=== PATIENT | female | born 1950 | race Two or more races ===

== ENCOUNTER 2024-03-29 09:23 | Emergency (ER) | payer OTHER, MEDICAID, SELFPAY ==
[2024-03-29 09:46] VITALS: BP 107/52; PULSE 90; RESP 16; TEMP 37.3; O2SAT 98; BMI 28.0
--- NOTE | 2024-03-29 10:03 | XR_ITS ---
Examination: Hand, left 3 views Technique: Hand AP, oblique, lateral 3 views Date and time of exam: March 29, 2024 1010 hrs. Indications: Onset pain and swelling involving the third digit this week Findings: Severe osteopenia No fracture No cortical bone destruction No opaque foreign body Impression: No opaque foreign body or cortical bone destruction
--- NOTE | 2024-03-29 10:04 | EDNOTE_ITS ---
Upper Extremity Injury RME/HPI General Chief Complaint: Hand/Wrist Problems Stated Complaint: left 3rd digit swelling pain Time Seen by Provider: 03/29/24 09:33 Source: patient and family Arrival date/time: 03/29/24 09:23 Limitations: language barrier RME / HPI RME / HPI narrative: 73-year-old female presents for evaluation of swelling and redness to the third digit of her left hand x 2 days. She reports spontaneous onset while she was washing the dishes several days ago. She reports putting a topical ointment ('from [place] ) on the wound with minimal improvement of symptoms. Patient reports similar lesion to the index finger of her right hand which improved after several days of applying the ointment. Patient reports that she regularly works in the yard and handles various cleaning chemicals at home. Patient denies fever, chills, spreading rash, chest pain, numbness, tingling. MD complaint: injury to: left Handedness: right Related Data Home Medications ?Medication ?Instructions ?Recorded ?Confirmed Aspirin Ec * (ECOTRIN *) 81 mg PO QDAY ##0 08/11/14 Benazepril Hcl * (LOTENSIN *) 10 mg PO QDAY #0 tabs 08/11/14 docusate sodium 100 mg capsule 100 mg PO BID #0 caps 08/11/14 (Colace) glipizide 10 mg tablet 10 mg PO ACBR #0 tabs 08/11/14 metformin 1,000 mg tablet 1,000 mg PO QDAC #0 tabs 08/11/14 (Glucophage) omeprazole 40 mg capsule,delayed 40 mg PO QDAY ##0 08/11/14 release (Prilosec) saxagliptin 5 mg tablet (Onglyza) 5 mg PO QDAY #0 tabs 08/11/14 Aspirin Ec * (ECOTRIN *) 81 mg PO QDAY Heart ##0 07/09/15 glipizide 10 mg tablet 10 mg PO BID Diabetes #0 tabs 07/09/15 insulin lispro 100 unit/mL 15 unit subcut BID Diabetes #0 07/09/15 subcutaneous solution (Humalog vials U-100 Insulin) linagliptin 5 mg tablet (Tradjenta) 5 mg PO QDAY Diabetes ##0 07/09/15 metformin 1,000 mg tablet 1,000 mg PO BID Diabetes #0 tabs 07/09/15 (Glucophage) Previous Rx's ?Medication ?Instructions ?Recorded Phenazopyridine * (PYRIDIUM *) 200 mg PO TIDPC #14 tabs 08/11/14 Phenazopyridine * (PYRIDIUM *) 200 mg PO TIDPC #6 tabs 07/09/15 Allergies Allergy/AdvReac Type Severity Reaction Status Date / Time NKA* Allergy Uncoded 03/29/24 09:23 Review of Systems Constitutional Constitutional: Denies chills, Denies fever(s) and Denies night sweats ENT Ears, Nose, Mouth, and Throat: Denies neck pain Cardiovascular Cardiovascular: Denies chest pain, Denies dyspnea and Denies palpitations Respiratory Respiratory: Denies cough and Denies dyspnea Gastrointestinal Gastrointestinal: Denies nausea and Denies vomiting Musculoskeletal Musculoskeletal: Denies back pain, Denies neck pain, Denies numbness, Denies radiating pain into limb, Denies stiffness and Denies tingling Integumentary/Breasts Skin/Breast: Reports lesions (Diffuse redness and swelling third digit left hand.) Neurologic Neurologic: Denies numbness and Denies tingling Endocrine Endocrine: Denies palpitations Past Medical History Past Medical History CARDIAC: Negative Congestive Heart Failure RESPIRATORY: Negative Chronic Obstructive Pulmonary Disease (COPD) GENITOURINARY: Negative Renal Disease ENDOCRINE: Negative Diabetes Mellitus Type 1 or Diabetes Mellitus Type 2 Social History SMOKING STATUS: Never smoker ED Exam General Limitations: Present language barrier General appearance: Present alert and in no apparent distress Head Head exam: Present atraumatic and normocephalic Eye Eye exam: Present normal appearance and EOMI ENT ENT exam: Present mucous membranes moist Neck Neck exam: Present full ROM Chest Chest inspection: Present normal inspection and symmetric chest wall rise Respiratory Respiratory exam: Present normal lung sounds bilaterally; Absent respiratory distress Cardiovascular Cardiovascular exam: Present regular rate and +S1 Abdominal Exam Abdominal exam: Present soft; Absent distention Expanded Upper Extremity Exam Arm exam: Present normal inspection Elbow exam: Present normal inspection Forearm/Wrist exam: Present normal inspection Hand exam: Present swelling (Diffuse swelling at DIP joint of third digit left hand with erythema.) and skin avulsion (Small skin avulsion distal tip of third digit left hand.); Absent tenderness or crepitus Neurosensory exam: Normal radial nerve Vascular exam: Normal capillary refill (Less than 3 seconds bilaterally.) and radial pulse Back Exam Back exam: Present normal inspection and full ROM Neurological Exam Neurological exam: Present alert and normal gait Psychiatric Psychiatric exam: Present normal affect Skin Skin exam: Present warm and dry Course Quality Measures none Orders Category Date Time Status XR hand comp LT min 3V Stat Exams 03/29/24 10:03 Completed Acetaminophen Tab [Tylenol Tab] Med 03/29/24 10:03 Discontinued 650 mg PO X1 ONE Amoxicillin Cap [Amoxil Cap] Med 03/29/24 11:41 Discontinued 500 mg PO X1 ONE Doxycycline [Vibramycin] Med 03/29/24 11:41 Discontinued 100 mg PO X1 ONE Vital Signs Vital signs: Vital Signs Temperature 99.1 F 03/29/24 09:46 Pulse Rate 90 03/29/24 09:46 Respiratory Rate 16 03/29/24 09:46 Blood Pressure 107/52 L 03/29/24 09:46 Pulse Oximetry (%) 98 03/29/24 09:46 Oxygen Delivery Method Room Air 03/29/24 09:46 Pulse ox 98% on room air, within normal limits. Extremity Injury MDM Narrative MDM Narrative:: 73-year-old female brought in by daughter for evaluation of left hand third digit redness and swelling for the last several days. Vital signs reassuring. Physical exam significant for mild swelling to DIP of third digit left hand with diffuse erythema, no fluctuance. X-rays today of left hand was reassuring given no lytic lesions or evidence of osteomyelitis. No fracture seen on x-ray. Patient nontoxic-appearing with focal erythema, therefore labs were not ordered today. Patient was started on antibiotics, to include MRSA coverage with doxycycline. Ultimately the patient was discharged with plan to follow-up with primary care in the next 2 to 3 days for reevaluation. Patient and daughter were advised to continue to monitor redness and swelling and return to the ED if her symptoms worsen or change. Patient stable at time of discharge. Patient data External records reviewed:: [facility] Clinical information provided by:: patient and family (Daughter.) Social determinants that could affect healthcare access:: none Patient has the following chronic illnesses:: Diabetes. How is presenting disease/condition affected by chronic disease/condition?: exacerbated by Evaluation data The following diagnostics were reviewed and interpreted by me:: radiology exam(s) Lab and/or radiology exams considered but not ordered:: Labs considered not ordered. Interpretation Summary: X-ray with no lytic lesions, no dislocation, no fracture, no dislocation left hand. Medications / Prescriptions Medications or Prescriptions considered but not ordered:: Rx given. Medication administrations:: Medication Administration History Discontinued Medications Acetaminophen (Acetaminophen 325 Mg Tablet) 650 mg PO X1 ONE Stop: 03/29/24 10:04 Last Admin: 03/29/24 11:38 Dose: 650 mg Documented By: DD Amoxicillin (Amoxicillin 250 Mg Capsule) 500 mg PO X1 ONE Stop: 03/29/24 11:42 Last Admin: 03/29/24 12:22 Dose: 500 mg Documented By: DD Doxycycline Hyclate (Doxycycline 100 Mg Tablet) 100 mg PO X1 ONE Stop: 03/29/24 11:42 Last Admin: 03/29/24 12:23 Dose: 100 mg Documented By: DD Rx given. Consultations Consultation(s) initiated? (list below): No Diagnosis Upper Extremity Injury Differential Diagnosis: dislocation of finger and other (Contact dermatitis, cellulitis, skin avulsion, abscess, osteomyelitis, fracture of finger.) Most likely diagnosis given after review of the tests above:: Cellulitis. Admission Indicated Admission indicated?: not indicated Admission Request Was there a request for admission?: No Disposition Plan Disposition Plan: Discharge Discharge Attestation Discharge Attestation: The patient and all family members were given an opportunity to ask questions and understood the discharge instructions. Discharge instructions specifically effects, indications for sooner follow up or return to the emergency department, and the expected course of current diagnosis. Patient condition: Stable Discharge Plan Plan Patient Disposition: HOME (Self Care) Disposition Comment: stable Prescriptions/Referrals Prescriptions/Med Rec: No Action Aspirin Ec * (ECOTRIN *) 81 MG TABLET.DR 81 mg PO QDAY Qty: 0 glipizide 10 MG tablet 10 mg PO ACBR Qty: 0 omeprazole [Prilosec] 40 MG capsule,delayed release(DR/EC) 40 mg PO QDAY Qty: 0 Patient Comments: TO SUPPRESS GASTRIC SECRETIONS metformin [Glucophage] 1,000 MG tablet 1,000 mg PO QDAC Qty: 0 docusate sodium [Colace] 100 MG capsule 100 mg PO BID Qty: 0 saxagliptin [Onglyza] 5 MG tablet 5 mg PO QDAY Qty: 0 Benazepril Hcl * (LOTENSIN *) 10 MG tablet 10 mg PO QDAY Qty: 0 Phenazopyridine * (PYRIDIUM *) 200 MG tablet 200 mg PO TIDPC Qty: 14 0RF Aspirin Ec * (ECOTRIN *) 81 MG TABLET. 81 mg PO QDAY Qty: 0 glipizide 10 MG tablet 10 mg PO BID Qty: 0 metformin [Glucophage] 1,000 MG tablet 1,000 mg PO BID Qty: 0 insulin lispro [Humalog U-100 Insulin] 100 U/ML solution 15 unit Sub-Q BID Qty: 0 linagliptin [Tradjenta] 5 MG tablet 5 mg PO QDAY Qty: 0 Phenazopyridine * (PYRIDIUM *) 200 MG tablet 200 mg PO TIDPC Qty: 6 0RF Referrals: Gilmar Jose [Primary Care Provider] - In 1 week Problem List Clinical Impression: Cellulitis Patient/Caregiver Discharge Instructions Other Activity Instructions:: Take doxycycline and amoxicillin twice daily as instructed. Continue to monitor for worsening redness and pain. Follow-up with primary care within the next 3 to 4 days for reevaluation of wound. Take Tylenol or ibuprofen as needed for pain. Return to the ED if your symptoms worsen or change Education Materials: Discharge Instructions for Cellulitis Print Language: Polish Stand Alone Forms: Cari Award Info., Patient Portal Info Letter PA/MEDIA SALES EXECUTIVE Supervising Physician PA/MEDIA SALES EXECUTIVE Supervising Physician: Dr. Jones
[2024-03-29] MEDS: ACETAMINOPHEN 325 MG TABLET 650 MG PO (11:38)
[2024-03-29] MEDS: AMOXICILLIN 250 MG CAPSULE 500 MG PO (12:22)
[2024-03-29] MEDS: DOXYCYCLINE 100 MG TABLET PO (12:23)
[2024-03-29 12:52] VITALS: BP 108/68; PULSE 86; RESP 18; TEMP 36.8; O2SAT 99
== END 2024-03-29 12:52 | disposition home or self-care (01) ==
PROVIDERS: Emergency Provider Emergency Medicine; PCP Physician Assistant
DX: L03.012 Cellulitis of left finger (principal)
CPT/HCPCS: 73130; 99283; A9270

== ENCOUNTER → 2024-04-21 | Outpatient (CLI) | payer OTHER, MEDICAID, SELFPAY ==
--- NOTE | 2024-04-21 16:00 | XR_ITS ---
Examination: Retroperitoneal ultrasound, complete Technique: Multiple high resolution grayscale images of the retroperitoneum obtained, including kidneys and bladder. Exam date and time:April 21, 2024 1606 hours INDICATIONS: Chronic kidney disease stage III diagnosis this month FINDINGS: Right kidney 10.4 x 4.9 x 5.7 cm cortex 1.5 cm Mild hydronephrosis Multiple renal calculi, the largest 10 mm in the upper pole Left kidney 9.7 x 6.1 x 6.2 cm renal cortex 1.1 cm Lower pole cyst 17 mm Multiple renal calculi, the largest 12 mm in the lower pole Mild right moderate left renal parenchymal scar formation No bladder mass or bladder calculi Bladder prevoid volume 627 cc postvoid volume 136 cc IMPRESSION: Multiple bilateral renal calculi Mild right hydronephrosis Mild right moderate left renal parenchymal scar formation
== END | disposition home or self-care (01) ==
LOC: CDIM 15:47
PROVIDERS: PCP Internal Medicine Nephrology; Referring Provider Internal Medicine Nephrology; Visit Provider Internal Medicine Nephrology
DX: N20.0 Calculus of kidney (principal); N13.30 Unspecified hydronephrosis; N28.89 Other specified disorders of kidney and ureter
CPT/HCPCS: 76770